=== PATIENT | female | born 1975 | race Caucasian/White ===

== ENCOUNTER 2018-08-01 20:00 | Emergency (ER) | payer OTHER ==
[~2018-08-01] VITALS: Ht 162.6 cm; Wt 70.6 kg
[2018-08-01 21:27] VITALS: BP 139/81
== END 2018-08-01 21:29 | disposition home or self-care (01) ==
LOC: ED 21:23
DX: K08.89 Other specified disorders of teeth and supporting structures (principal); Z88.0 Allergy status to penicillin
CPT/HCPCS: 99283

== ENCOUNTER 2020-06-27 10:18 | Emergency (ER) | payer OTHER ==
[~2020-06-27] VITALS: Ht 162.6 cm; Wt 68.8 kg
[2020-06-27 10:21] VITALS: BP 148/87
[2020-06-27] MEDS ORDERED: HYDROcodone/APAP 5/325 TABLET ONE (10:52)
[2020-06-27] MEDS ORDERED: HYDROcodone/APAP 5/325 TABLET PO ONE (11:00)
== END 2020-06-27 11:07 ==
LOC: ED 11:01
DX: K08.89 Other specified disorders of teeth and supporting structures (principal)
CPT/HCPCS: 99283